=== PATIENT | male | born 1945 | race Caucasian/White ===

== ENCOUNTER 2017-03-26 14:07 | Inpatient (IN) | payer MEDICARE ==
[~2017-03-26] VITALS: Ht 182.9 cm; Wt 86.3 kg
--- NOTE | ~2017-03-26 | IDS ---
Interim Discharge Summary [facility] [address] [place]. [address] NAME: FORREST CHRISTIANSON : 47 STATUS : ADM IN PAT#: [id number] AGE: 71 ADM/REG DATE : 03/26/17 MR#: [id number] REPORT SERV DATE: 04/04/17 DICTATED BY: TYLER HINKLE DATE: 04/04/17 REPORT STATUS : Draft TRANSCRIBED BY: MODL DATE: 04/04/17 ADMISSION DATE: 03/26/2017 DISCHARGE DATE: PROGRESS NOTE WELL INTERIM DISCHARGE SUMMARY FOR 04/04/2017. SUBJECTIVE: The patient is breathing better. He denies any melena, hematochezia, or epistaxis. He is on heparin drip. OBJECTIVE: VITAL SIGNS: He has 92% on 1 L, 18 respirations, 80 pulse, afebrile. GENERAL: In no acute distress. HEENT: PERRLA. No scleral icterus. CARDIOVASCULAR: Regular rate and rhythm. No murmur. RESPIRATORY: Decreased breath sounds bibasilarly. No wheezes or crackles. ABDOMEN: Nontender, nondistended. Positive bowel sounds. EXTREMITIES: No edema. No ecchymosis. NEUROLOGIC: GCS 15. A and O x4. PSYCHIATRIC: Normal affect and mood. LABORATORY DATA: Today, he has INR of 1.7 from 1.5 from 1.4. He has a therapeutic PTTs, on heparin drip. White count 6.4, hemoglobin 10.8 from 11.1, platelets are 164,000. Potassium 137, 3.7 potassium, 101 chloride, 26 bicarb, 1.35 creatinine from 1.53 from 1.73, BNP was elevated at 1284 for which he is on Bumex now 1 IV b.i.d. I got a chest x-ray today. He has left greater than right pleural effusion with compressive atelectasis. I did a venous Doppler lower extremity ultrasound. No DVT, and in the upper extremities, he had an SVT with thrombus in the left cephalic vein, however, that is superior fistula, venous thromboembolism, not a DVT. As a result, we got IVC given the concern with nuclear medicine lung perfusion scan for which it showed an abnormal V/Q scan, large left basilar triple match with ventilation perfusion defect matching a larger area of opacity and suspected pleural fluid, however, also has small mismatched defect of medial right middle lobe, moderate size matched defect in the lateral right middle lobe as well. Intermediate probability for PE. The patient had an echocardiogram, LVEF 20% to 25%, moderate diastolic dysfunction, moderate left atrial enlargement, mildly dilated RV with mild hypocontractility, mild right atrial enlargement, mild MR/TR, moderate pulmonary hypertension. INTERIM DISCHARGE SUMMARY/PROGRESS NOTE: This is an unfortunate 71-year-old male, who has a known history of ischemic cardiomyopathy, LVEF now 20% to 25%, which was previously 35% in 2014. Sees the MS transformer repairer. He has history of CABG, known occluded RODRÍGUEZ to LAD, SVG to D1 graft, subsequent PCI to LAD and left circumflex, known diffuse in- stent restenosis, not repeat bypass candidate, known history of AFib, known history of sick sinus syndrome with pacer placed in 1999 with subsequent pacer infection or erosion, removed [place] [address] Hahn, with pacemaker upgraded to Bi-V in 2012; however, because of anatomic issue, current device is right-sided, submuscular, specific generator change in two weeks. We will have a left LV lead placement hopefully at that time. Currently, his left LV lead is turned off, plan to revert back to just a pacemaker without Bi-V pacing, history Interim Discharge Summary [address] [address] NAME: FORREST CHRISTIANSON : 47 STATUS : ADM IN [facility]#: [id number] AGE: 71 ADM/REG DATE : 03/26/17 MR#: [id number] REPORT SERV DATE: 04/04/17 DICTATED BY: TYLER HINKLE DATE: 04/04/17 REPORT STATUS : Draft TRANSCRIBED BY: MODL DATE: 04/04/17 of nonsustained V-tach, sotalol since that time, history of stroke, PAD with PCI to bilateral lower extremities; diabetes, [id number]; history of DVT and PE in 1978; stroke in 1997; liver cirrhosis; small esophageal varices; he sees Dr. Johnson; carotid endarterectomy on the left; right hip fracture. The patient came in with a significant shortness of breath, recently was being seen by the MS transformer repairer for which the patient was recommended Lasix with addition of lisinopril. Dr. Wilcox with [facility] recommended to remain on Plavix with Pradaxa, however, went to [facility] for shortness of breath, right-sided pleural effusion, concern for possible infiltrate as well underneath. The patient did actually get a CT of the chest in light of renal failure and they found a small left lower lobe blood clot, PE. He was placed on heparin drip at that time of transfer to [facility] the 03/26/2017. He was found to have acute on chronic systolic heart failure and CESAR. He was taken off Pradaxa and was just placed on heparin drip given the incidence of PE while on Pradaxa. He was IV diuresed and actually went to the ICU after the patient was found to have upper GI bleed for which an endoscopy was performed on 03/27/2017, nonsevere esophagitis, grade 2 esophageal varices, clotted blood in the entire stomach, Dieulafoy lesion of the stomach, apparently was cauterized, bipolar probe was successful. Normal exam of the duodenum. He was given Protonix drip thereafter and switched him over to IV b.i.d. Unfortunately, given the concern regarding hypoxia associated with pleural effusion with more importantly PE, Pulmonary becomes involved for expertise regarding risk of anticoagulation-associated bleed versus treatment. IVC filter was placed, and as a result, ultrasound just showed the superficial venous thromboembolism. Given that bilateral perfusion defects on the V/Q scan rather than just located to the pleural effusion, it shows to authentic the PE especially given a prior CT of the chest despite kidney injury. Kidney injury is improved. BNP still elevated, and as a result, I increased his Bumex to 1 IV b.i.d. at negative 1.7 L over the past 24. INR is finally 1.7. Chose heparin drip and Coumadin as they are easily reversible compared to Lovenox longer acting or Eliquis or Pradaxa, which can be either expensive or difficult to reverse. I was okay with starting anticoagulation. Would like to keep them until his INR is at least 2, will target to 2.0 to 2.5 given bleed. Only significant risk of rebleed is likely from esophagitis as is only found to have esophagitis and Dieulafoy lesion. Hopeful discharge in the next two to three days to a facility once INR is 2.0 and should discontinue the heparin drip at that time. All questions were answered. It took well over 30 minutes to do. Will need lifelong anticoagulation likely. WST/BRADFORDL Tyler Hinkle DO / [id number] CC: Interim Discharge Summary [address] [address] NAME: FORREST CHRISTIANSON : 47 STATUS : ADM IN PAT#: [id number] AGE: 71 ADM/REG DATE : 03/26/17 MR#: [id number] REPORT SERV DATE: 04/04/17 DICTATED BY: TYLER HINKLE DATE: 04/04/17 REPORT STATUS : Draft TRANSCRIBED BY: MODL DATE: 04/04/17 DO CECILIA Damian JAMES DANIEL
--- NOTE | ~2017-03-26 | CN ---
Consultation Report [facility] [address] [place]. [address] NAME: BRYON CHRISTIANSON : 47 STATUS : ADM IN PAT#: [id number] AGE: 71 ADM/REG DATE : 03/26/17 MR#: [id number] REPORT SERV DATE: 04/02/17 DICTATED BY: MATTHEW TRIPLETT DATE: 04/01/17 REPORT STATUS : Draft TRANSCRIBED BY: MODL DATE: 04/01/17 CONSULTATION DATE OF CONSULTATION: 04/01/2017 CHIEF COMPLAINT: Shortness of breath in a patient with a pulmonary embolism. HISTORY OF PRESENT ILLNESS: Mr. Bryon Christianson is a pleasant 71-year-old white male with a past medical history significant for congestive heart failure with a left ventricular ejection fraction of 20% to 25%, atrial fibrillation, peripheral vascular disease, and previous pulmonary embolism who presents to [facility] as a transfer from an outside facility. It should be noted that the patient has not been hospitalized recently. He has done fairly well in the recent time period given his advanced age and significant comorbidities. Mr. Christianson is not currently followed by a mental health specialist. He does not usually require supplemental oxygen. He is on no nebulized medications. The patient quit smoking roughly 20 years ago. Prior to this time, he smoked a pack a day for about 20 years. He describes his exercise tolerance as being fairly limited as of late. The patient has started to notice some shortness of breath in November of this year. He did present to a walk-in clinic where he was provided antibiotics without any significant improvement in his shortness of breath. It should be noted this in the setting of a patient with known heart failure and a pacemaker. He more recently presented to [facility] with complaints of worsening shortness of breath. He did eventually undergo a CTA of the chest which raised the question of filling defects in subsegmental arteries. He was eventually transferred to [facility]. Anticoagulation was started during this time, and the patient unfortunately experienced a GI bleed. He was seen by the GI Service. During this time, his anticoagulation was stopped. He did receive some blood products. He eventually underwent an upper GI endoscopy which demonstrated bleeding and a Dieulafoy lesion. The patient did eventually improve and was transferred to the floor. He did undergo a V/Q scan which demonstrated a perfusion defect in bilateral lungs as well as signs consistent with an effusion. As there is a question about the significance of his pulmonary emboli and the need to start anticoagulation, he has been referred to the Pulmonary Service for further assessment. Currently, the patient is on minimal oxygen. He denies any shortness of breath at rest. He is not coughing. He is not producing any purulent sputum. He has had a pulmonary embolism in the past. The patient does have known heart failure, dysrhythmia - atrial fibrillation. He currently denies any murmurs, angina, or palpitations. In regard to constitutional symptoms, he currently denies fever, chills, nausea, vomiting, chest pain, abdominal pain, or edema. Consultation Report [place] [id number] [facility] [place]. [address] NAME: BRYON CHRISTIANSON : 47 STATUS : ADM IN [facility]#: [id number] AGE: 71 ADM/REG DATE : 03/26/17 MR#: [id number] REPORT SERV DATE: 04/02/17 DICTATED BY: MATTHEW TRIPLETT DATE: 04/01/17 REPORT STATUS : Draft TRANSCRIBED BY: REMINGTON DATE: 04/01/17 PAST MEDICAL HISTORY: 1. Ischemic cardiomyopathy. 2. Atrial fibrillation. 3. Complete heart block, status post pacemaker. 4. CVA. 5. Peripheral vascular disease with stenting. 6. Type 2 diabetes. 7. Dyslipidemia. 8. PE/DVT in 1978. 9. Liver cirrhosis with esophageal varices. PAST SURGICAL HISTORY: 1. Coronary artery bypass graft surgery. 2. PCI. 3. Carotid endarterectomy. 4. Right hip fracture repair. FAMILY HISTORY: The patient denies a family history of lung disease. SOCIAL HISTORY: The patient is . His is currently at the bedside. He is a . Tobacco/alcohol, as previously mentioned, the patient quit smoking 20 years ago. Prior to this time, he smoked maybe a pack a day for a period of 20 years. He denies any recent alcohol or illicit drug use. MEDICATIONS: Clopidogrel 75 mg, Pradaxa 150 mg, furosemide 20 mg, glipizide 10 mg, lisinopril 5 mg, metoprolol 25 mg, and Tylenol 80 mg. ALLERGIES: THE PATIENT HAS NO KNOWN DRUG ALLERGIES. REVIEW OF SYSTEMS: A complete review of systems was performed with pertinent positives contained within the body of the HPI. PHYSICAL EXAMINATION: VITAL SIGNS: Blood pressure is 113/60, heart rate is 73, T-max is 97.5, respiratory rate is 20, and SpO2 is 94% on 2 L. GENERAL: Mr. Bryon Christianson is a pleasant 71-year-old white male who is not currently exhibiting any signs of acute distress. SKIN: Skin with appropriate texture and turgor. No rashes, lesions, or ulcers. HEENT: Head, skull is normocephalic and atraumatic. Eyes, sclerae anicteric. Ears, auricles and tragus without pain to palpation. Nose, bilateral nasal patency. Throat, patient dentition noted. Consultation Report [place] [id number] [facility] [place]. [address] NAME: BRYON CHRISTIANSON : 47 STATUS : ADM IN [facility]#: [id number] AGE: 71 ADM/REG DATE : 03/26/17 MR#: [id number] REPORT SERV DATE: 04/02/17 DICTATED BY: MATTHEW TRIPLETT DATE: 04/01/17 REPORT STATUS : Draft TRANSCRIBED BY: REMINGTON DATE: 04/01/17 NECK: Neck is supple. Trachea midline. THORAX AND LUNGS: Inspiratory crackles in the posterior lung prado. Dullness to percussion in the left lower lung prado. CARDIOVASCULAR: Paced rhythm. No murmurs. ABDOMEN: Soft, nontender, and nondistended. PERIPHERAL VASCULAR: Chronic changes. No edema. MUSCULOSKELETAL: Full AROM and PROM in all joints. NEUROLOGIC: Cranial nerves 2 through 12 grossly intact. PSYCHIATRIC: The patient is alert and oriented x3. IMPRESSION: 1. PE/DVT. 2. GI bleed. 3. Acute blood loss anemia. 4. Congestive heart failure. 5. Atrial fibrillation. 6. Cirrhosis. 7. Left pleural effusion. PLAN: Given the patient's history of previous PE and DVT, he would likely need lifelong anticoagulation. This is complicated by his recent GI bleed. That being said, we will likely proceed with IVC filter placement. We will ask our colleagues in Gastroenterology to comment on whether anticoagulation can be restarted in the near future. Aforementioned impression and plan has been discussed with Dr. Pedroza who will follow further recommendations. We thank you for this consult and look forward to participating in the care of Mr. Bryon Christianson. GBS/MODL Matthew Triplett PA-C / [id number] CC: Roe Chowdhury
--- NOTE | ~2017-03-26 | HP ---
History And Physical [place] [id number] [facility] [place]. [address] NAME: FORREST CHRISTIANSON : 47 STATUS : ADM IN PAT#: [id number] AGE: 71 ADM/REG DATE : 03/26/17 MR#: [id number] REPORT SERV DATE: 03/26/17 DICTATED BY: GAYATHRI BATES DATE: 03/26/17 REPORT STATUS : Draft TRANSCRIBED BY: MODL DATE: 03/26/17 DATE OF ADMISSION: 03/26/2017 CHIEF COMPLAINT: Short of breath ever since August. HISTORY OF PRESENT ILLNESS: This is a 71-year-old male patient who does have ischemic cardiomyopathy with ejection fraction found to be 35% in 2014 echocardiogram and was followed by [facility], started getting short of breath since August and then he started to seek the medical attention seriously this month. Initially, he thought he had an upper respiratory infection and was treated with here and there with antibiotics, did not get any better completely, and for the few months, he has been having more issue with short of breath and lower extremity swelling, and finally, he went to see the Cardiology Clinic physician at the [facility] in [place]. He normally follows via [facility] in [place]. He does have multiple significant cardiac history and he went to see the electrical design engineer in the [facility] on 03/17/2017 with the same problem. At that time, he was recommended to take the Lasix 20 mg once a day daily basis and lisinopril was added at that admission at that clinic visit, and the patient was scheduled to return to the clinic for pacemaker generator and left ventricle lead placement with Dr. Wilcox over at the [facility], and the patient was to remain on Plavix and Pradaxa treatment for oral anticoagulation for atrial fibrillation. However, he did not get any better. He started having no sleep at night, more restless with short of breath, and he decided to go to the [facility] today. At the [facility], he was found to be with renal insufficiency, which was thought to be acutely and chest x-ray was read as right-sided pleural effusion. However, there was a concern for infiltrate, so emergency physician recommended CTA of the chest with contrast in light of renal failure and they found a small left lower lobe blood clot, and the patient was put on heparin drip and the patient was transferred up here per request for the patient and family. Currently, he is 97% on room air and he has a mild short of breath, but as long as he is not moving around, he is comfortable. He does complain about abdominal distention and lower extremity swelling and short of breath and has a dry cough that has been going on for several months. There is no fever, no chills. No chest pain. He does not feel any palpitation or denies any syncopal episode or dizziness. REVIEW OF SYSTEMS: All systems reviewed and negative, but he also has a decreased urine output and he feels like his urine has been dark, but no dysuria. Does not have any history of a prostate issue. PAST MEDICAL HISTORY: 1. Ischemic cardiomyopathy. History of previous CABG with a known occluded RODRÍGUEZ and LAD and SVG to D1 graft, subsequent PCI to the LAD and left circumflex with a known diffuse ISR, not repeater bypass candidate. History And Physical [address] [address] NAME: FORREST CHRISTIANSON : 47 STATUS : ADM IN [facility]#: [id number] AGE: 71 ADM/REG DATE : 03/26/17 MR#: [id number] REPORT SERV DATE: 03/26/17 DICTATED BY: GAYATHRI BATES DATE: 03/26/17 REPORT STATUS : Draft TRANSCRIBED BY: REMINGTON DATE: 03/26/17 2. Atrial fibrillation with oral anticoagulation with Pradaxa and rate and rhythm control. 3. History of complete heart block, status post pacemaker placed in 1999. 4. Had subsequent pacemaker infection and erosion, so it was removed in 2006 at [facility] with Dr. Hahn. 5. His pacemaker was upgraded to BiV pacemaker in 2012. However, because of the anatomical issue, the patient's current device is right-sided submuscular and the patient is supposed to have a generator change in three weeks, and at that time, he will have left LV lead placement. Currently, his LV lead is turned off and the plan was to revert back to just a pacemaker without the BiV pacing. 6. Nonsustained ventricular tachycardia in 2008. He has been Sotalol since 2008. 7. Had a stroke in 1997. 8. Peripheral vascular disease, status post PCI to bilateral lower extremities. 9. Diabetes type 2, not insulin dependent. 10.Hyperlipidemia. 11.History of DVT and PE in 1978. 12.History of stroke in 1997. 13.History of liver cirrhosis with small esophageal varices, was taken care by Dr. Johnson. Etiology is related with long-standing diabetes plus-minus heart failure. PAST SURGICAL HISTORY: 1. Cardiac bypass. 2. Multiple stents. 3. Carotid endarterectomy, left side. 4. Right hip fracture repair with the pin. ALLERGIES: NO KNOWN DRUG ALLERGIES. SOCIAL HISTORY: He is a former smoker, quit smoking 20 years ago. He is a and also he used to work at the [employer]. He does not work anymore. He lives with . MEDICATIONS AT HOME: Plavix 75 mg once a day, Pradaxa 150 mg twice a day, sotalol 80 mg twice a day, lisinopril 5 mg once a day was started on 03/17/2017, and glipizide 20 mg twice a day. He is not on statin at the moment. FAMILY HISTORY: Noncontributory. PHYSICAL EXAMINATION: VITAL SIGNS: Blood pressure is 139/72, heart rate is 87, saturation 97% on room air, respiratory rate 16, temperature 97.5. GENERAL APPEARANCE: He is alert, awake, not in acute distress at this point. HEENT: Pupils are equal, round, and reactive to light. EOMI intact. Conjunctivae not anemic. NECK: I do not hear any carotid bruits. CHEST: There is no breathing sound at the right side and very decreased breathing sounds on both sides; however, the left base has more decreased breathing sound as well. I do not hear any wheezing. CARDIOVASCULAR: Has a S3 and has very distant heart sound, but does not hear any murmur, History And Physical [address] [address] NAME: FORREST CHRISTIANSON : 47 STATUS : ADM IN PAT#: [id number] AGE: 71 ADM/REG DATE : 03/26/17 MR#: [id number] REPORT SERV DATE: 03/26/17 DICTATED BY: GAYATHRI BATES DATE: 03/26/17 REPORT STATUS : Draft TRANSCRIBED BY: MODL DATE: 03/26/17 rub, or gallop. ABDOMEN: Bowel sounds are present. Soft. There is no tenderness or rebound tenderness, and I appreciate a shifting dullness. EXTREMITIES: Has pitting edema on both extremities. His left side of leg has old scar and the right side pulse is intact and strong. Left side is cold foot and then the pulse is weak. LABORATORY DATA: From the [facility] showed sodium 136, potassium 4.2, chloride 98, bicarb 25, BUN 22, creatinine 1.35, glucose 168. WBC 3.6, hemoglobin 11.6, hematocrit of 35.9, platelets are 138. ASSESSMENT AND PLAN: 1. Acute on chronic heart failure, more likely systolic dysfunction. The patient is scheduled for echocardiogram on 04/09/2017 and generator change on 04/12/2017. However, his symptoms are more worsened, and we are going to obtain this evaluation here and we will use IV diuretics and follow x-rays and watching the renal failure. 2. Renal failure. 3. (?) ascites. 4. Diabetes mellitus. 5. Peripheral vascular disease. 6. History of nonsustained ventricular tachycardia. 7. Non-ST elevation myocardial infarction. Troponin was 0.[address] [facility] 8[address] finding of positive left lower lobe small pulmonary embolism, was on Pradaxa at home, now currently he is on the heparin drip. I am not sure about the clinical significance about this finding to contribute to his several months of short of breath issue. 9. Overall, the patient will be admitted to the hospital with IV diuretics and also we are going to also obtain the ultrasound of the abdomen and chest x-ray and watching the renal failure along with IV diuretic treatment and electrolytes will be replaced carefully and cardiac telemetry, and continue the heparin at this point, and we will make a clinical adjustment along with clinical course. I discussed with the patient and the and other family who were in the room and they all voiced understanding and all questions were answered. EKL/MODL Gayathri Bates M.D. / [id number] CC: Gayathri Bates M.D.
--- NOTE | ~2017-03-26 | EGD ---
EGD REPORT [facility] [address] [place]. [id number] NAME: FORREST CHRISTIANSON : [birth year] STATUS : ADM IN PAT#: [id number] AGE: 71 ADM/REG DATE : 03/26/17 MR#: [id number] REPORT SERV DATE: 03/28/17 DICTATED BY: SANTY QUIROS DATE: 03/28/17 REPORT STATUS : Draft TRANSCRIBED BY: [facility] DATE: 03/28/17 [facility] Patient Name: Forrest Christianson Date of : 1945 Attending MD: SANTY QUIROS MD Procedure Date No Time: 03/27/2017 Procedure: Upper GI endoscopy Indications: Acute post hemorrhagic anemia, Hematemesis, Active gastrointestinal bleeding Medicines: General Anesthesia Complications: No immediate complications. Procedure: Pre-Anesthesia Assessment: - ASA Grade Assessment: IV - A patient with severe systemic disease that is a constant threat to life. - ASA Grade Assessment: E - Emergency. After obtaining informed consent, the endoscope was passed under direct vision. Throughout the procedure, the patient's blood pressure, pulse, and oxygen saturations were monitored continuously. The GIF [id number] was introduced through the mouth, and advanced to the second part of duodenum. The upper GI endoscopy was accomplished without difficulty. The patient tolerated the procedure well. Findings: Non-severe esophagitis with no bleeding was found in the entire esophagus. Grade II varices were found in the lower third of the esophagus. They were medium in largest diameter. No signs of bleeding Clotted blood was found in the entire examined stomach. Clots removed or cleared from the mucosa. No etiology of the bleeding seen, in the body and antrum A Dieulafoy lesion with oozing bleeding and stigmata of recent bleeding was found in the gastric fundus. These were found after clearing the clots from the fundus Coagulation for hemostasis using bipolar probe was successful. The examined duodenum was normal. Impression: - Non-severe esophagitis. - Grade II esophageal varices. - Clotted blood in the entire stomach. - Dieulafoy lesion of stomach. - Normal examined duodenum. Recommendation: - Check hemoglobin q 6 hours for two days. EGD REPORT [address] [address] NAME: FORREST CHRISTIANSON : [birth year] STATUS : ADM IN [facility]#: [id number] AGE: 71 ADM/REG DATE : 03/26/17 MR#: [id number] REPORT SERV DATE: 03/28/17 DICTATED BY: SANTY QUIROS DATE: 03/28/17 REPORT STATUS : Draft TRANSCRIBED BY: [employer] DATE: 03/28/17 - Clear liquid diet. - When awake - Continue present medications. - Give Protonix (pantoprazole): 8 mg/hr IV by continuous infusion for 3 days. - Return patient to ICU for ongoing care. Procedure Code(s): --- Professional --- 17206, Esophagogastroduodenoscopy, flexible, transoral; with control of bleeding, any method Diagnosis Code(s): --- Professional --- K20.9, Esophagitis, unspecified I85.00, Esophageal varices without bleeding K92.2, Gastrointestinal hemorrhage, unspecified K31.82, Dieulafoy lesion (hemorrhagic) of stomach and duodenum D62, Acute posthemorrhagic anemia K92.0, Hematemesis CPT copyright 2013 [employer]. All rights reserved. The codes documented in this report are preliminary and upon insurance business analyst review may be revised to meet current compliance requirements. Santy Quiros MD SANTY QUIROS MD 03/28/2017 1:25 AM This report has been signed electronically. Number of Addenda: 0 Note Initiated On: 03/27/2017 11:33 PM Scope Withdrawal Time 0 hours 0 minutes 0 seconds [id number] [id number]
--- NOTE | ~2017-03-26 | OP ---
Record Of Operation [facility] [address] [place]. [id number] NAME: FORREST CHRISTIANSON : [birth year] STATUS : ADM IN PAT#: [id number] AGE: 71 ADM/REG DATE : 03/26/17 MR#: [id number] REPORT SERV DATE: 04/07/17 DICTATED BY: ALBINO SCHNEIDER DATE: 04/07/17 REPORT STATUS : Draft TRANSCRIBED BY: MOD[employer]uan DATE: 04/07/17 DATE OF PROCEDURE: 04/07/2017 TITLE OF PROCEDURE: Arterial line placement. INDICATION: Hemodynamic monitoring and shock. PROCEDURE NOTE: The patient's left groin was prepped and draped in sterile fashion. No lidocaine was needed to anesthetize the area. An Arrow arterial line was introduced into the left common femoral artery under ultrasound guidance. The catheter was then threaded over the guidewire and the needle was removed with appropriate pulsatile blood return. The catheter was then sutured into place to the skin and sterile dressing applied. I was present for the entire procedure. There were no complications. EDUARDO/REMINGTON Albino Schneider MD / [id number] CC: Fatou Bates M.D.
--- NOTE | ~2017-03-26 | OP ---
Record Of Operation [facility] [address] [place]. [address] NAME: FORREST CHRISTIANSON : [birth year] STATUS : ADM IN PAT#: [id number] AGE: 71 ADM/REG DATE : 03/26/17 MR#: [id number] REPORT SERV DATE: 04/07/17 DICTATED BY: ALBINO SCHNEIDER DATE: 04/07/17 REPORT STATUS : Draft TRANSCRIBED BY: MODL DATE: 04/07/17 DATE OF PROCEDURE: 04/07/2017 TITLE OF PROCEDURE: Endotracheal intubation. INDICATION: Cardiac arrest and respiratory failure. PROCEDURE NOTE: Emergent airway was needed during a code blue. The patient was already in a flat position. No sedation was needed. The patient was ventilated using an Ambu bag during CPR. The GlideScope was used and inserted into the oropharynx, at which time, there was a grade 2 view of the vocal cords; however, there was large copious amounts of bright red blood obscuring this view for much of the time. Oropharyngeal suctioning was applied and eventually clear enough view was able to be obtained and I was able to pass 80-Portuguese endotracheal tube through the vocal cords. The stylet was removed. Colorimetric change was visualized on the CO2 meter. Endotracheal tube was placed at 25 cm measured at the teeth DICTATION ENDS HERE EDUARDO/REMINGTON Albino Schneider MD / [id number] CC: Fatou Bates M.D.
--- NOTE | ~2017-03-26 | OP ---
Record Of Operation [facility] [address] [place]. [address] NAME: FORREST CHRISTIANSON : [birth year] STATUS : ADM IN PAT#: [id number] AGE: 71 ADM/REG DATE : 03/26/17 MR#: [id number] REPORT SERV DATE: 04/07/17 DICTATED BY: ALBINO SCHNEIDER DATE: 04/07/17 REPORT STATUS : Draft TRANSCRIBED BY: MODL DATE: 04/07/17 DATE OF PROCEDURE: 04/07/2017 TITLE OF PROCEDURE: Central venous catheter placement. INDICATION: Shock. PROCEDURE NOTE: The patient was in a dependent position. The patient's right groin was prepped and draped. No lidocaine was needed to anesthetize the area. A triple-lumen catheter was introduced into the right common femoral vein using the Seldinger technique. The catheter was threaded smoothly over the guidewire, and appropriate blood return was obtained. Each lumen of the catheter was evacuated of air and flushed with sterile saline. The catheter was then held in place by sterile dressing. I was present for the entire procedure. EDUARDO/REMINGTON Albino Schneider MD / [id number] CC: Fatou Bates M.D.
[~2017-03-26 14:07] MED LIST: GLUCOTRO10; HYDROCHLOROT25 MG PO; LOP25 PO; PLAVIX PO; PRADAXA150 MG PO; SORINE80 MG PO
[2017-03-26 17:12] LABS: INTERNATIONAL NORMAL RATI 2.1 UNITS (-)
[2017-03-26 17:26] LABS: PROTIME (NOT ORD) 23.7 SEC (12.0-14.5)
[2017-03-26 17:27] LABS: PARTIAL THROMBO TIME > 150.0 SEC (22.5-37.2)
[2017-03-26] MEDS ORDERED: GLUCOTRO10 PO (17:51)
[2017-03-26] MEDS ORDERED: PLAVIX PO (17:51)
[2017-03-26] MEDS ORDERED: LOP25 PO (17:51)
[2017-03-26] MEDS ORDERED: SORINE80 MG PO (17:51)
[2017-03-26] MEDS ORDERED: PRADAXA150 MG PO (17:52)
[2017-03-26] MEDS ORDERED: PRIN5 PO (17:53)
[2017-03-26] MEDS ORDERED: L20 PO (17:54)
[2017-03-26 18:16] LABS: BASOPHILS 0.6 %; BASOPHILS ABSOLUTE 0.03 10/3/uL (0.0-0.16); EOSINOPHILS 1.9 %; EOSINOPHILS ABSOLUTE 0.09 10/3/uL (0.0-0.53); HEMATOCRIT 37.7 % (40.0-51.0); HEMOGLOBIN 11.9 g/dL (13.6-17.8); IMMATURE GRANULOCYTES 0.2 %; IMMATURE GRANULOCYTES ABSOLUTE 0.01 10/3/uL (0.0-0.11); LYMPHOCYTES 27.8 %; LYMPHOCYTES ABSOLUTE 1.32 10/3/uL (0.67-4.30); MEAN PLATELET VOLUME 9.7 fL (9.2-13.0); MONOCYTES 10.5 %; PLATELET COUNT 163 10/3/uL (150-400); RED CELL COUNT 4.35 10/6/uL (4.7-6.1)
[2017-03-26 18:17] LABS: MANUAL DIFF NO %; MEAN CORPUS HGB CONC 31.6 g/dL (32.0-36.0); MEAN CORPUSCULAR HEMOGLOB 27.4 pg (26.0-34.0); MEAN CORPUSCULAR VOLUME 86.7 fL (80-100); RBC DISTRIBUTION WIDTH 16.8 % (12.0-16.0); WHITE BLOOD CELLS 4.8 10/3/uL (4.5-10.5)
[2017-03-26 18:31] LABS: A/G RATIO 0.6 (0.7-1.9); ALBUMIN 3.2 G/DL (3.5-5.0); ALKALINE PHOSPHATASE 127 U/L (45-117); BUN (BLOOD UREA NITROGEN) 22 MG/DL (6-23); CHLORIDE, SERUM 103 MMOL/L (96-112); CO2 (CARBON DIOXIDE) 28 MMOL/L (24-34); CREATININE 1.27 MG/DL (0.70-1.30); GFR AFRICAN AMERICAN 66 ML/MIN (>=60); GFR NON AFRICAN AMERICAN 57 ML/MIN (>=60); GLOBULIN 5.1 G/DL (2.5-4.1); GLUCOSE, SERUM 82 MG/DL (60-99); POTASSIUM, SERUM 3.8 MMOL/L (3.5-5.3); SGOT(AST) 43 U/L (5-40); SGPT(ALT) 23 U/L (5-65); SODIUM, SERUM 137 MMOL/L (135-148); TOTAL BILIRUBIN 1.2 MG/DL (0-1.2); TOTAL PROTEIN 8.3 G/DL (6.0-8.5)
[2017-03-27 06:58] LABS: BASOPHILS 0.6 %; BASOPHILS ABSOLUTE 0.02 10/3/uL (0.0-0.16); EOSINOPHILS 2.4 %; EOSINOPHILS ABSOLUTE 0.08 10/3/uL (0.0-0.53); HEMOGLOBIN 10.3 g/dL (13.6-17.8); IMMATURE GRANULOCYTES 0.3 %; IMMATURE GRANULOCYTES ABSOLUTE 0.01 10/3/uL (0.0-0.11); LYMPHOCYTES 27.7 %; LYMPHOCYTES ABSOLUTE 0.92 10/3/uL (0.67-4.30); MEAN CORPUS HGB CONC 31.8 g/dL (32.0-36.0); MEAN CORPUSCULAR HEMOGLOB 27.5 pg (26.0-34.0); MEAN CORPUSCULAR VOLUME 86.4 fL (80-100); MEAN PLATELET VOLUME 9.1 fL (9.2-13.0); MONOCYTES 12.3 %; MONOCYTES ABSOLUTE 0.41 10/3/uL (0.21-1.20); NEUTROPHILS 56.7 %; NEUTROPHILS ABSOLUTE 1.88 10/3/uL (2.02-8.40); PLATELET COUNT 133 10/3/uL (150-400); RBC DISTRIBUTION WIDTH 17.1 % (12.0-16.0); RED CELL COUNT 3.75 10/6/uL (4.7-6.1); WHITE BLOOD CELLS 3.3 10/3/uL (4.5-10.5)
[2017-03-27 07:03] LABS: HEMATOCRIT 32.4 % (40.0-51.0); MANUAL DIFF NO %
[2017-03-27 07:11] LABS: BUN (BLOOD UREA NITROGEN) 27 MG/DL (6-23); CALCIUM, SERUM 8.8 MG/DL (8.5-10.4); CHLORIDE, SERUM 105 MMOL/L (96-112); CO2 (CARBON DIOXIDE) 29 MMOL/L (24-34); CREATININE 1.24 MG/DL (0.70-1.30); GFR AFRICAN AMERICAN 68 ML/MIN (>=60); GFR NON AFRICAN AMERICAN 59 ML/MIN (>=60); GLUCOSE, SERUM 90 MG/DL (60-99); POTASSIUM, SERUM 4.1 MMOL/L (3.5-5.3); SODIUM, SERUM 142 MMOL/L (135-148)
[2017-03-27 17:16] LABS: HEMOGLOBIN 9.2 g/dL (13.6-17.8)
[2017-03-27 17:17] LABS: HEMATOCRIT 28.9 % (40.0-51.0)
[2017-03-28 01:56] LABS: HEMATOCRIT 37.7 % (40.0-51.0); HEMOGLOBIN 12.7 g/dL (13.6-17.8)
[2017-03-28 04:26] LABS: BASOPHILS 0.1 %; BASOPHILS ABSOLUTE 0.01 10/3/uL (0.0-0.16); EOSINOPHILS 0 %; HEMATOCRIT 34.9 % (40.0-51.0); HEMOGLOBIN 11.6 g/dL (13.6-17.8); IMMATURE GRANULOCYTES 0.2 %; IMMATURE GRANULOCYTES ABSOLUTE 0.02 10/3/uL (0.0-0.11); LYMPHOCYTES 10.5 %; LYMPHOCYTES ABSOLUTE 1.03 10/3/uL (0.67-4.30); MEAN CORPUS HGB CONC 33.2 g/dL (32.0-36.0); MEAN CORPUSCULAR HEMOGLOB 28.8 pg (26.0-34.0); MEAN CORPUSCULAR VOLUME 86.6 fL (80-100); MEAN PLATELET VOLUME 9.4 fL (9.2-13.0); MONOCYTES 10.1 %; MONOCYTES ABSOLUTE 0.99 10/3/uL (0.21-1.20); NEUTROPHILS 79.1 %; NEUTROPHILS ABSOLUTE 7.76 10/3/uL (2.02-8.40); PLATELET COUNT 137 10/3/uL (150-400); RBC DISTRIBUTION WIDTH 16.7 % (12.0-16.0); RED CELL COUNT 4.03 10/6/uL (4.7-6.1)
[2017-03-28 04:27] LABS: MANUAL DIFF NO %; WHITE BLOOD CELLS 9.8 10/3/uL (4.5-10.5)
[2017-03-28 04:43] LABS: A/G RATIO 0.8 (0.7-1.9); ALBUMIN 3.3 G/DL (3.5-5.0); ALKALINE PHOSPHATASE 91 U/L (45-117); BUN (BLOOD UREA NITROGEN) 52 MG/DL (6-23); CHLORIDE, SERUM 100 MMOL/L (96-112); CO2 (CARBON DIOXIDE) 27 MMOL/L (24-34); CREATININE 1.98 MG/DL (0.70-1.30); DIRECT BILIRUBIN 0.9 MG/DL (0.0-0.4); GFR AFRICAN AMERICAN 39 ML/MIN (>=60); GFR NON AFRICAN AMERICAN 33 ML/MIN (>=60); GLUCOSE, SERUM 188 MG/DL (60-99); INDIRECT BILIRUBIN(NOT ORDER) 2.7 MG/DL (0.1-0.9); POTASSIUM, SERUM 4.2 MMOL/L (3.5-5.3); SGOT(AST) 37 U/L (5-40); SGPT(ALT) 20 U/L (5-65); SODIUM, SERUM 139 MMOL/L (135-148); TOTAL BILIRUBIN 3.6 MG/DL (0-1.2); TOTAL PROTEIN 7.3 G/DL (6.0-8.5)
[2017-03-28 09:57] LABS: HEMATOCRIT 34.4 % (40.0-51.0); HEMOGLOBIN 11.5 g/dL (13.6-17.8)
[2017-03-28 16:08] LABS: HEMATOCRIT 35.1 % (40.0-51.0); HEMOGLOBIN 11.7 g/dL (13.6-17.8)
[2017-03-28 22:23] LABS: HEMATOCRIT 34.3 % (40.0-51.0); HEMOGLOBIN 11.5 g/dL (13.6-17.8)
[2017-03-28 22:29] LABS: BUN (BLOOD UREA NITROGEN) 68 MG/DL (6-23); CHLORIDE, SERUM 100 MMOL/L (96-112); CO2 (CARBON DIOXIDE) 27 MMOL/L (24-34); GFR AFRICAN AMERICAN 32 ML/MIN (>=60); GFR NON AFRICAN AMERICAN 28 ML/MIN (>=60); GLUCOSE, SERUM 208 MG/DL (60-99); PHOSPHORUS, SERUM 3.9 MG/DL (2.5-4.5); POTASSIUM, SERUM 4.4 MMOL/L (3.5-5.3); SODIUM, SERUM 140 MMOL/L (135-148)
[2017-03-29 04:09] LABS: BASOPHILS 0.1 %; BASOPHILS ABSOLUTE 0.01 10/3/uL (0.0-0.16); EOSINOPHILS 0 %; HEMATOCRIT 34.2 % (40.0-51.0); HEMOGLOBIN 11.4 g/dL (13.6-17.8); IMMATURE GRANULOCYTES 0.2 %; IMMATURE GRANULOCYTES ABSOLUTE 0.02 10/3/uL (0.0-0.11); LYMPHOCYTES 12.3 %; LYMPHOCYTES ABSOLUTE 1.04 10/3/uL (0.67-4.30); MANUAL DIFF NO %; MEAN CORPUS HGB CONC 33.3 g/dL (32.0-36.0); MEAN CORPUSCULAR HEMOGLOB 28.6 pg (26.0-34.0); MEAN CORPUSCULAR VOLUME 85.9 fL (80-100); MONOCYTES 8.5 %; MONOCYTES ABSOLUTE 0.72 10/3/uL (0.21-1.20); NEUTROPHILS 78.9 %; NEUTROPHILS ABSOLUTE 6.67 10/3/uL (2.02-8.40); PLATELET COUNT 125 10/3/uL (150-400); RBC DISTRIBUTION WIDTH 17.3 % (12.0-16.0); RED CELL COUNT 3.98 10/6/uL (4.7-6.1); WHITE BLOOD CELLS 8.5 10/3/uL (4.5-10.5)
[2017-03-29 04:19] LABS: BUN (BLOOD UREA NITROGEN) 68 MG/DL (6-23); CALCIUM, SERUM 9.3 MG/DL (8.5-10.4); CHLORIDE, SERUM 102 MMOL/L (96-112); CO2 (CARBON DIOXIDE) 27 MMOL/L (24-34); CREATININE 1.98 MG/DL (0.70-1.30); GFR AFRICAN AMERICAN 39 ML/MIN (>=60); GFR NON AFRICAN AMERICAN 33 ML/MIN (>=60); GLUCOSE, SERUM 195 MG/DL (60-99); POTASSIUM, SERUM 3.9 MMOL/L (3.5-5.3); SODIUM, SERUM 140 MMOL/L (135-148)
[2017-03-29 12:06] LABS: HEMATOCRIT 34.8 % (40.0-51.0); HEMOGLOBIN 11.4 g/dL (13.6-17.8)
[2017-03-29 16:50] LABS: HEMATOCRIT 36.6 % (40.0-51.0); HEMOGLOBIN 11.9 g/dL (13.6-17.8)
[2017-03-29 23:26] LABS: HEMATOCRIT 36.5 % (40.0-51.0)
[2017-03-30 04:09] LABS: BASOPHILS 0.1 %; BASOPHILS ABSOLUTE 0.01 10/3/uL (0.0-0.16); EOSINOPHILS 0.1 %; EOSINOPHILS ABSOLUTE 0.01 10/3/uL (0.0-0.53); HEMATOCRIT 36.8 % (40.0-51.0); HEMOGLOBIN 11.8 g/dL (13.6-17.8); IMMATURE GRANULOCYTES 0.3 %; IMMATURE GRANULOCYTES ABSOLUTE 0.03 10/3/uL (0.0-0.11); LYMPHOCYTES 9.1 %; LYMPHOCYTES ABSOLUTE 0.91 10/3/uL (0.67-4.30); MEAN CORPUS HGB CONC 32.1 g/dL (32.0-36.0); MEAN CORPUSCULAR HEMOGLOB 28.5 pg (26.0-34.0); MONOCYTES 10.4 %; MONOCYTES ABSOLUTE 1.04 10/3/uL (0.21-1.20); NEUTROPHILS ABSOLUTE 8.02 10/3/uL (2.02-8.40); PLATELET COUNT 137 10/3/uL (150-400); RBC DISTRIBUTION WIDTH 17.8 % (12.0-16.0); RED CELL COUNT 4.14 10/6/uL (4.7-6.1)
[2017-03-30 04:10] LABS: MANUAL DIFF NO %; MEAN CORPUSCULAR VOLUME 88.9 fL (80-100)
[2017-03-30 04:23] LABS: BUN (BLOOD UREA NITROGEN) 67 MG/DL (6-23); CHLORIDE, SERUM 104 MMOL/L (96-112); CO2 (CARBON DIOXIDE) 26 MMOL/L (24-34); CREATININE 2.09 MG/DL (0.70-1.30); GFR AFRICAN AMERICAN 36 ML/MIN (>=60); GFR NON AFRICAN AMERICAN 31 ML/MIN (>=60); GLUCOSE, SERUM 188 MG/DL (60-99); PHOSPHORUS, SERUM 3.5 MG/DL (2.5-4.5); POTASSIUM, SERUM 4.2 MMOL/L (3.5-5.3); SODIUM, SERUM 141 MMOL/L (135-148)
[2017-03-30 09:53] LABS: HEMATOCRIT 36.1 % (40.0-51.0); HEMOGLOBIN 11.5 g/dL (13.6-17.8)
[2017-03-30 15:55] LABS: HEMATOCRIT 34.9 % (40.0-51.0); HEMOGLOBIN 11.3 g/dL (13.6-17.8)
[2017-03-30 21:42] LABS: HEMATOCRIT 35.9 % (40.0-51.0); HEMOGLOBIN 11.6 g/dL (13.6-17.8)
[2017-03-31 04:16] LABS: BASOPHILS 0.2 %; BASOPHILS ABSOLUTE 0.02 10/3/uL (0.0-0.16); EOSINOPHILS ABSOLUTE 0.08 10/3/uL (0.0-0.53); HEMATOCRIT 35.6 % (40.0-51.0); HEMOGLOBIN 11.4 g/dL (13.6-17.8); IMMATURE GRANULOCYTES 0.2 %; IMMATURE GRANULOCYTES ABSOLUTE 0.02 10/3/uL (0.0-0.11); LYMPHOCYTES 12.4 %; MANUAL DIFF NO %; MEAN CORPUSCULAR HEMOGLOB 28.9 pg (26.0-34.0); MEAN CORPUSCULAR VOLUME 90.4 fL (80-100); MEAN PLATELET VOLUME 9.8 fL (9.2-13.0); MONOCYTES 10.8 %; MONOCYTES ABSOLUTE 0.87 10/3/uL (0.21-1.20); NEUTROPHILS 75.4 %; NEUTROPHILS ABSOLUTE 6.05 10/3/uL (2.02-8.40); PLATELET COUNT 137 10/3/uL (150-400); RBC DISTRIBUTION WIDTH 18.3 % (12.0-16.0); RED CELL COUNT 3.94 10/6/uL (4.7-6.1)
[2017-03-31 04:39] LABS: CALCIUM, SERUM 8.9 MG/DL (8.5-10.4); CHLORIDE, SERUM 104 MMOL/L (96-112); CO2 (CARBON DIOXIDE) 26 MMOL/L (24-34); CREATININE 2.02 MG/DL (0.70-1.30); GFR AFRICAN AMERICAN 38 ML/MIN (>=60); GFR NON AFRICAN AMERICAN 32 ML/MIN (>=60); GLUCOSE, SERUM 163 MG/DL (60-99); PHOSPHORUS, SERUM 3.2 MG/DL (2.5-4.5); SODIUM, SERUM 140 MMOL/L (135-148)
[2017-03-31 04:42] LABS: BUN (BLOOD UREA NITROGEN) 64 MG/DL (6-23)
[2017-04-01 06:03] LABS: BASOPHILS 0.1 %; BASOPHILS ABSOLUTE 0.01 10/3/uL (0.0-0.16); EOSINOPHILS 1.6 %; EOSINOPHILS ABSOLUTE 0.12 10/3/uL (0.0-0.53); HEMATOCRIT 36.6 % (40.0-51.0); HEMOGLOBIN 11.5 g/dL (13.6-17.8); IMMATURE GRANULOCYTES 0.3 %; IMMATURE GRANULOCYTES ABSOLUTE 0.02 10/3/uL (0.0-0.11); LYMPHOCYTES 11.6 %; LYMPHOCYTES ABSOLUTE 0.89 10/3/uL (0.67-4.30); MEAN CORPUS HGB CONC 31.4 g/dL (32.0-36.0); MEAN CORPUSCULAR HEMOGLOB 28.6 pg (26.0-34.0); MEAN PLATELET VOLUME 9.8 fL (9.2-13.0); MONOCYTES 11.3 %; MONOCYTES ABSOLUTE 0.87 10/3/uL (0.21-1.20); NEUTROPHILS 75.1 %; NEUTROPHILS ABSOLUTE 5.78 10/3/uL (2.02-8.40); PLATELET COUNT 135 10/3/uL (150-400); RBC DISTRIBUTION WIDTH 18.2 % (12.0-16.0); RED CELL COUNT 4.02 10/6/uL (4.7-6.1); WHITE BLOOD CELLS 7.7 10/3/uL (4.5-10.5)
[2017-04-01 06:05] LABS: MANUAL DIFF NO %
[2017-04-01 06:14] LABS: BUN (BLOOD UREA NITROGEN) 65 MG/DL (6-23); CALCIUM, SERUM 8.9 MG/DL (8.5-10.4); CHLORIDE, SERUM 102 MMOL/L (96-112); CO2 (CARBON DIOXIDE) 26 MMOL/L (24-34); CREATININE 2.01 MG/DL (0.70-1.30); GFR AFRICAN AMERICAN 38 ML/MIN (>=60); GFR NON AFRICAN AMERICAN 33 ML/MIN (>=60); GLUCOSE, SERUM 185 MG/DL (60-99); PHOSPHORUS, SERUM 3.8 MG/DL (2.5-4.5); POTASSIUM, SERUM 4.2 MMOL/L (3.5-5.3); SODIUM, SERUM 138 MMOL/L (135-148)
[2017-04-01 17:04] LABS: PROCALCITONIN 0.37 ng/mL (<0.5)
[2017-04-02 06:34] LABS: BASOPHILS 0.2 %; BASOPHILS ABSOLUTE 0.01 10/3/uL (0.0-0.16); EOSINOPHILS 1.4 %; EOSINOPHILS ABSOLUTE 0.09 10/3/uL (0.0-0.53); HEMATOCRIT 34.3 % (40.0-51.0); HEMOGLOBIN 11.1 g/dL (13.6-17.8); IMMATURE GRANULOCYTES 0.2 %; IMMATURE GRANULOCYTES ABSOLUTE 0.01 10/3/uL (0.0-0.11); LYMPHOCYTES 12.9 %; LYMPHOCYTES ABSOLUTE 0.82 10/3/uL (0.67-4.30); MEAN CORPUS HGB CONC 32.4 g/dL (32.0-36.0); MEAN CORPUSCULAR HEMOGLOB 29.2 pg (26.0-34.0); MEAN CORPUSCULAR VOLUME 90.3 fL (80-100); MEAN PLATELET VOLUME 9.8 fL (9.2-13.0); MONOCYTES 11.4 %; MONOCYTES ABSOLUTE 0.73 10/3/uL (0.21-1.20); NEUTROPHILS 73.9 %; NEUTROPHILS ABSOLUTE 4.72 10/3/uL (2.02-8.40); PLATELET COUNT 134 10/3/uL (150-400); RBC DISTRIBUTION WIDTH 18.3 % (12.0-16.0); WHITE BLOOD CELLS 6.4 10/3/uL (4.5-10.5)
[2017-04-02 06:35] LABS: MANUAL DIFF NO %
[2017-04-02 06:42] LABS: INTERNATIONAL NORMAL RATI 1.4 UNITS (-); PROTIME (NOT ORD) 17.2 SEC (12.0-14.5)
[2017-04-02 06:58] LABS: BUN (BLOOD UREA NITROGEN) 57 MG/DL (6-23); CALCIUM, SERUM 9.1 MG/DL (8.5-10.4); CHLORIDE, SERUM 101 MMOL/L (96-112); CO2 (CARBON DIOXIDE) 27 MMOL/L (24-34); CREATININE 1.73 MG/DL (0.70-1.30); GFR AFRICAN AMERICAN 45 ML/MIN (>=60); GFR NON AFRICAN AMERICAN 39 ML/MIN (>=60); GLUCOSE, SERUM 193 MG/DL (60-99); PHOSPHORUS, SERUM 3.5 MG/DL (2.5-4.5); POTASSIUM, SERUM 3.9 MMOL/L (3.5-5.3); SODIUM, SERUM 136 MMOL/L (135-148)
[2017-04-02 07:16] LABS: PROCALCITONIN 0.37 ng/mL (<0.5)
[2017-04-03 06:33] LABS: BASOPHILS 0.1 %; BASOPHILS ABSOLUTE 0.01 10/3/uL (0.0-0.16); EOSINOPHILS 3.1 %; EOSINOPHILS ABSOLUTE 0.21 10/3/uL (0.0-0.53); HEMATOCRIT 33.7 % (40.0-51.0); HEMOGLOBIN 10.8 g/dL (13.6-17.8); IMMATURE GRANULOCYTES 0.1 %; IMMATURE GRANULOCYTES ABSOLUTE 0.01 10/3/uL (0.0-0.11); LYMPHOCYTES 19.2 %; LYMPHOCYTES ABSOLUTE 1.29 10/3/uL (0.67-4.30); MANUAL DIFF NO %; MEAN CORPUSCULAR HEMOGLOB 28.7 pg (26.0-34.0); MEAN CORPUSCULAR VOLUME 89.6 fL (80-100); MEAN PLATELET VOLUME 9.8 fL (9.2-13.0); MONOCYTES 9.8 %; MONOCYTES ABSOLUTE 0.66 10/3/uL (0.21-1.20); NEUTROPHILS 67.7 %; NEUTROPHILS ABSOLUTE 4.55 10/3/uL (2.02-8.40); PLATELET COUNT 149 10/3/uL (150-400); RBC DISTRIBUTION WIDTH 18.4 % (12.0-16.0); RED CELL COUNT 3.76 10/6/uL (4.7-6.1); WHITE BLOOD CELLS 6.7 10/3/uL (4.5-10.5)
[2017-04-03 06:43] LABS: INTERNATIONAL NORMAL RATI 1.5 UNITS (-); PROTIME (NOT ORD) 17.6 SEC (12.0-14.5)
[2017-04-03 06:47] LABS: CHLORIDE, SERUM 101 MMOL/L (96-112); CO2 (CARBON DIOXIDE) 28 MMOL/L (24-34); CREATININE 1.53 MG/DL (0.70-1.30); GFR AFRICAN AMERICAN 53 ML/MIN (>=60); GFR NON AFRICAN AMERICAN 45 ML/MIN (>=60); GLUCOSE, SERUM 189 MG/DL (60-99); PHOSPHORUS, SERUM 3.7 MG/DL (2.5-4.5); POTASSIUM, SERUM 3.7 MMOL/L (3.5-5.3); SODIUM, SERUM 137 MMOL/L (135-148)
[2017-04-03 06:48] LABS: BUN (BLOOD UREA NITROGEN) 47 MG/DL (6-23)
[2017-04-03 07:25] LABS: PARTIAL THROMBO TIME 150.4 SEC (22.5-37.2)
[2017-04-04 04:55] LABS: INTERNATIONAL NORMAL RATI 1.7 UNITS (-); PROTIME (NOT ORD) 19.7 SEC (12.0-14.5)
[2017-04-04 05:00] LABS: CALCIUM, SERUM 9.2 MG/DL (8.5-10.4); CHLORIDE, SERUM 101 MMOL/L (96-112); CO2 (CARBON DIOXIDE) 26 MMOL/L (24-34); CREATININE 1.35 MG/DL (0.70-1.30); GFR AFRICAN AMERICAN 61 ML/MIN (>=60); GFR NON AFRICAN AMERICAN 53 ML/MIN (>=60); GLUCOSE, SERUM 168 MG/DL (60-99); PHOSPHORUS, SERUM 3.1 MG/DL (2.5-4.5); POTASSIUM, SERUM 3.7 MMOL/L (3.5-5.3); SODIUM, SERUM 137 MMOL/L (135-148)
[2017-04-04 05:01] LABS: BUN (BLOOD UREA NITROGEN) 39 MG/DL (6-23)
[2017-04-04 05:25] LABS: BASOPHILS 0.6 %; BASOPHILS ABSOLUTE 0.04 10/3/uL (0.0-0.16); EOSINOPHILS 3.3 %; EOSINOPHILS ABSOLUTE 0.21 10/3/uL (0.0-0.53); HEMATOCRIT 34.7 % (40.0-51.0); HEMOGLOBIN 11.1 g/dL (13.6-17.8); IMMATURE GRANULOCYTES 0.2 %; IMMATURE GRANULOCYTES ABSOLUTE 0.01 10/3/uL (0.0-0.11); LYMPHOCYTES 18.5 %; LYMPHOCYTES ABSOLUTE 1.19 10/3/uL (0.67-4.30); MEAN CORPUSCULAR HEMOGLOB 29.1 pg (26.0-34.0); MEAN CORPUSCULAR VOLUME 91.1 fL (80-100); MEAN PLATELET VOLUME 10.2 fL (9.2-13.0); MONOCYTES ABSOLUTE 0.58 10/3/uL (0.21-1.20); NEUTROPHILS 68.4 %; PLATELET COUNT 164 10/3/uL (150-400); RBC DISTRIBUTION WIDTH 18.5 % (12.0-16.0); RED CELL COUNT 3.81 10/6/uL (4.7-6.1); WHITE BLOOD CELLS 6.4 10/3/uL (4.5-10.5)
[2017-04-04 05:40] LABS: MANUAL DIFF NO %
[2017-04-05 04:58] LABS: BASOPHILS 0.2 %; BASOPHILS ABSOLUTE 0.02 10/3/uL (0.0-0.16); EOSINOPHILS 0.8 %; EOSINOPHILS ABSOLUTE 0.08 10/3/uL (0.0-0.53); HEMOGLOBIN 11.2 g/dL (13.6-17.8); IMMATURE GRANULOCYTES 0.4 %; IMMATURE GRANULOCYTES ABSOLUTE 0.04 10/3/uL (0.0-0.11); LYMPHOCYTES 11.6 %; LYMPHOCYTES ABSOLUTE 1.22 10/3/uL (0.67-4.30); MEAN CORPUSCULAR HEMOGLOB 31.8 pg (26.0-34.0); MEAN CORPUSCULAR VOLUME 93.8 fL (80-100); MONOCYTES 6.9 %; MONOCYTES ABSOLUTE 0.72 10/3/uL (0.21-1.20); NEUTROPHILS 80.1 %; NEUTROPHILS ABSOLUTE 8.42 10/3/uL (2.02-8.40); PLATELET COUNT 164 10/3/uL (150-400); RED CELL COUNT 3.52 10/6/uL (4.7-6.1)
[2017-04-05 05:00] LABS: MANUAL DIFF NO %; MEAN CORPUS HGB CONC 33.9 g/dL (32.0-36.0); RBC DISTRIBUTION WIDTH 13.3 % (12.0-16.0); WHITE BLOOD CELLS 10.5 10/3/uL (4.5-10.5)
[2017-04-05 05:04] LABS: INTERNATIONAL NORMAL RATI 1.2 UNITS (-); PARTIAL THROMBO TIME 36.7 SEC (22.5-37.2)
[2017-04-05 05:06] LABS: PROTIME (NOT ORD) 15.1 SEC (12.0-14.5)
[2017-04-05 05:09] LABS: CHLORIDE, SERUM 98 MMOL/L (96-112); CO2 (CARBON DIOXIDE) 29 MMOL/L (24-34); CREATININE 1.44 MG/DL (0.70-1.30); GFR AFRICAN AMERICAN 57 ML/MIN (>=60); GFR NON AFRICAN AMERICAN 49 ML/MIN (>=60); GLUCOSE, SERUM 173 MG/DL (60-99); PHOSPHORUS, SERUM 3.5 MG/DL (2.5-4.5); POTASSIUM, SERUM 3.8 MMOL/L (3.5-5.3); SODIUM, SERUM 135 MMOL/L (135-148)
[2017-04-05 05:14] LABS: BUN (BLOOD UREA NITROGEN) 23 MG/DL (6-23); CALCIUM, SERUM 8.2 MG/DL (8.5-10.4)
[2017-04-06 07:42] LABS: PARTIAL THROMBO TIME 89.1 SEC (22.5-37.2)
[2017-04-06 07:43] LABS: INTERNATIONAL NORMAL RATI 5.1 UNITS (-); PROTIME (NOT ORD) 46.7 SEC (12.0-14.5)
[2017-04-07 05:24] LABS: BASOPHILS 0.4 %; BASOPHILS ABSOLUTE 0.06 10/3/uL (0.0-0.16); EOSINOPHILS 0.8 %; EOSINOPHILS ABSOLUTE 0.12 10/3/uL (0.0-0.53); HEMATOCRIT 33.8 % (40.0-51.0); HEMOGLOBIN 10.4 g/dL (13.6-17.8); IMMATURE GRANULOCYTES 2.3 %; IMMATURE GRANULOCYTES ABSOLUTE 0.35 10/3/uL (0.0-0.11); LYMPHOCYTES 25.1 %; LYMPHOCYTES ABSOLUTE 3.79 10/3/uL (0.67-4.30); MEAN CORPUSCULAR HEMOGLOB 28.9 pg (26.0-34.0); MEAN CORPUSCULAR VOLUME 93.9 fL (80-100); MEAN PLATELET VOLUME 9.5 fL (9.2-13.0); MONOCYTES 2.9 %; MONOCYTES ABSOLUTE 0.43 10/3/uL (0.21-1.20); NEUTROPHILS 68.5 %; NEUTROPHILS ABSOLUTE 10.32 10/3/uL (2.02-8.40); PLATELET COUNT 117 10/3/uL (150-400)
[2017-04-07 05:29] LABS: MANUAL DIFF NO %; MEAN CORPUS HGB CONC 30.8 g/dL (32.0-36.0); RBC DISTRIBUTION WIDTH 17.3 % (12.0-16.0); WHITE BLOOD CELLS 15.1 10/3/uL (4.5-10.5)
[2017-04-07 05:31] LABS: INTERNATIONAL NORMAL RATI 4.3 UNITS (-); PROTIME (NOT ORD) 40.9 SEC (12.0-14.5)
[2017-04-07 05:40] LABS: BUN (BLOOD UREA NITROGEN) 22 MG/DL (6-23); CALCIUM, SERUM 7.8 MG/DL (8.5-10.4); CHLORIDE, SERUM 101 MMOL/L (96-112); CREATININE 1.54 MG/DL (0.70-1.30); GFR AFRICAN AMERICAN 52 ML/MIN (>=60); GFR NON AFRICAN AMERICAN 45 ML/MIN (>=60); POTASSIUM, SERUM 4.2 MMOL/L (3.5-5.3); SGPT(ALT) 61 U/L (5-65)
[2017-04-07 05:42] LABS: A/G RATIO 0.7 (0.7-1.9); ALBUMIN 2.1 G/DL (3.5-5.0); ALKALINE PHOSPHATASE 151 U/L (45-117); CO2 (CARBON DIOXIDE) 21 MMOL/L (24-34); GLOBULIN 3.2 G/DL (2.5-4.1); GLUCOSE, SERUM 273 MG/DL (60-99); PHOSPHORUS, SERUM 7.3 MG/DL (2.5-4.5); SGOT(AST) 131 U/L (5-40); SODIUM, SERUM 142 MMOL/L (135-148); TOTAL BILIRUBIN 0.8 MG/DL (0-1.2); TOTAL PROTEIN 5.3 G/DL (6.0-8.5)
[2017-04-07 06:09] LABS: PROCALCITONIN 0.17 ng/mL (<0.5)
== END 2017-04-07 05:02 | disposition expired | DRG 166 ==
LOC: ENRESERVTM → ENRESERVDT → ENRESERV → 2SO 16:26 → CCU 16:26 → IMCU 03-27 18:14 → CCU 03-27 22:39 → 2SO 03-30 23:47 → CCU 04-07 03:15
PROVIDERS: Internal Medicine; Internal Medicine Critical Care Medicine; Internal Medicine Gastroenterology; Internal Medicine Pulmonary Disease
PROC: 30233L1 Transfusion of Nonautologous Fresh Plasma into Peripheral Vein, Percutaneous Approach (ICD-10-PCS; 2017-03-27)
PROC: 30233N1 Transfusion of Nonautologous Red Blood Cells into Peripheral Vein, Percutaneous Approach (ICD-10-PCS; 2017-03-27)
PROC: 0D568ZZ Destruction of Stomach, Via Natural or Artificial Opening Endoscopic (ICD-10-PCS; principal; 2017-03-27 00:39)
PROC: 06H03DZ Insertion of Intraluminal Device into Inferior Vena Cava, Percutaneous Approach (ICD-10-PCS; 2017-04-02)
PROC: 5A1945Z Respiratory Ventilation, 24-96 Consecutive Hours (ICD-10-PCS; 2017-04-02)
PROC: B5191ZA Fluoroscopy of Inferior Vena Cava using Low Osmolar Contrast, Guidance (ICD-10-PCS; 2017-04-02)
PROC: 0BH17EZ Insertion of Endotracheal Airway into Trachea, Via Natural or Artificial Opening (ICD-10-PCS; 2017-04-07)
PROC: 06HY33Z Insertion of Infusion Device into Lower Vein, Percutaneous Approach (ICD-10-PCS; 2017-04-07)
DX: I26.99 Other pulmonary embolism without acute cor pulmonale (principal); I21.4 Non-ST elevation (NSTEMI) myocardial infarction; R57.9 Shock, unspecified; J96.01 Acute respiratory failure with hypoxia; I50.23 Acute on chronic systolic (congestive) heart failure; I47.2 Ventricular tachycardia; K31.82 Dieulafoy lesion (hemorrhagic) of stomach and duodenum; N18.3 Chronic kidney disease, stage 3 (moderate); K25.0 Acute gastric ulcer with hemorrhage; I85.10 Secondary esophageal varices without bleeding; D62 Acute posthemorrhagic anemia; I82.4Z9 Acute embolism and thrombosis of unspecified deep veins of unspecified distal lower extremity; I46.9 Cardiac arrest, cause unspecified; E11.22 Type 2 diabetes mellitus with diabetic chronic kidney disease; I48.0 Paroxysmal atrial fibrillation; I49.5 Sick sinus syndrome; I25.5 Ischemic cardiomyopathy; E78.5 Hyperlipidemia, unspecified; I49.3 Ventricular premature depolarization; K74.60 Unspecified cirrhosis of liver; I25.10 Atherosclerotic heart disease of native coronary artery without angina pectoris; Z95.0 Presence of cardiac pacemaker; Z95.1 Presence of aortocoronary bypass graft; Z95.5 Presence of coronary angioplasty implant and graft; Z79.01 Long term (current) use of anticoagulants; Z86.73 Personal history of transient ischemic attack (TIA), and cerebral infarction without residual deficits; Z79.02 Long term (current) use of antithrombotics/antiplatelets; Z87.891 Personal history of nicotine dependence; I49.01 Ventricular fibrillation
CPT/HCPCS: 31720; 36415; 36600; 37191; 71010; 71020; 76700; 78582; 80048; 80053; 80076; 82140; 82330; 82803; 82947; 82962; 83605; 83735; 83880; 84100; 84132; 84145; 84295; 85014; 85018; 85025; 85610; 85730; 86850; 86900; 86901; 86920; 87641; 92950; 93970; 94002; 94640; 97110-GO; 97116-GP; 97162-GP; 97165-GO; 97535-GO; A9270-GY; A9540; A9567; C1769; C1880; C1894; C8929; C9113; G8978-CJ-GP; G8979-CH-GP; G8987-CK-GO; G8988-CJ-GO; J0282; J0360; J2250; J2370; J2405; J2550; J3010; P9016; P9047; P9059; Q9957